=== PATIENT | male | born 1975 | race Caucasian/White ===

== ENCOUNTER 2024-06-27 12:31 | Outpatient (AMB) | payer BC, SELFPAY ==
--- NOTE | 2024-06-27 12:34 | MHC.PC.OV ---
Vital Signs 06/27/24 12:36 Height 5 ft 9 in Weight 166 lb BMI 24.5 BP 132/80 Blood Pressure Location Lt brachial Position Sitting Pulse 67 Pulse Source Pulse Oximeter Pulse Oximetry (%) 97 Oxygen Delivery Method Room Air Intake Visit Reasons: PENS AND PENCILS DIPPER est care Intake Note: Pt is here today for New patient visit PE. Allergies codeine Allergy (Verified 06/27/24 12:38) vomiting nausea Medication List - Last Reconciled 06/27/24 by JOESPH Childers No Known Home Meds Tobacco use date assessed: 06/27/24 Dental Screening Dental Screen Date: 06/27/24 Did you have a dental visit in the last 12 months?: Yes Did you have a dental problem in the last 6 months where you did not have access to dental care?: No Was dental information given to patient?: Patient has dentist HPI PENS AND PENCILS DIPPER est care HPI Details History of Present Illness The patient is a 49-year-old male presenting for a routine physical examination. During the visit, it was noted that the patient has a familial history of Deep Vein Thrombosis (DVT) on his mother?s side, including his mother, uncle, brother, and grandfather. The patient has not experienced any indications or symptoms suggestive of a current or recent DVT episode. He reports that he is physically active, engaging in jogging, tennis, and regular gym workouts. Additionally, he has been experiencing mild depression due to the recent passing of his mother but does not identify significant mental health issues otherwise. He has expressed openness to seeking therapy independently if needed. Health Maintenance - Recommend referral for colonoscopy screening as the patient has never undergone this procedure. - Discussed the importance of continued physical activity for cardiovascular health. Social History - Engages in physical activities such as jogging, tennis, and gym workouts regularly. - Recently experienced mild depression due to the passing of his mother. Review of Systems - Cardiovascular: Denies chest pain. - Respiratory: Denies shortness of breath. - Gastrointestinal: Denies blood in stool, constipation, diarrhea. - Neurological/Psychiatric: Experiences mild depression; denies anxiety. Physical Exam General: Cooperative, healthy appearing, comfortable, no acute distress and well developed Orientation: Patient oriented x3 Limitations: No limitations Head: Normal to inspection Ears: Hearing grossly normal bilaterally Nose: Normal external nose present Face and sinus: Normal facial exam Eyes: Appearance normal, both eyes and all related structures Neck: Normal visual inspection and Yes full ROM Respiratory: Normal respiratory effort and able to speak in complete sentences. Clear to auscultation bilaterally Cardiovascular: Regular rate and rhythm. Normal S1 and S2 GI: Normal to inspection. Soft to palpation and nontender Skin: Freckles throughout body, but no skin lesions or abnormal pigmented lesions noted Neuro: Patient oriented x3 Extremities: Normal to inspection Results Plan - Proceed with a referral to hematology for further investigation into the familial history of DVT. - Recommend a colonoscopy as part of regular health maintenance, given the patient's age and absence of previous screenings. Patient was informed and verbally consented to the use of an ambient scribe for clinic note documentation during this visit. Discussion Notes During the visit, I discussed the significance of monitoring for DVT given the patient's extensive family history. I plan to refer him to hematology to explore potential inherited conditions that may increase his risk. Additionally, I advised on the importance of maintaining his current exercise regimen for health benefits. I recommended undergoing a colonoscopy, which he has not previously had, to ensure comprehensive preventive care. The patient was informed about the potential benefits of seeking therapy to support his mental health, especially in navigating recent bereavement. Patient Instructions - Schedule an appointment with a fare enforcement officer for evaluation related to family history of DVT. - Arrange for a colonoscopy screening. - Continue engaging in regular physical activities such as jogging, tennis, and gym workouts. - Consider therapy for support with mild depression if deemed beneficial. [facility] Surgical History [place] teeth extracted Family History Father Lung cancer Brain cancer Mental health disorder Substance use disorder Mother Hypertension GI cancer Brother Mental health disorder Social History Housing: House Patient Tobacco Use Status: Former Tobacco user e-Cigarette/Vaping Use: Never Used service: No Current occupational status: employed Cognitive needs: No Hearing needs: No Vision needs: Yes Questionnaire PHQ-9 Over the last 2 weeks, how often have you been bothered by any of the following problems? 1. Little interest or pleasure in doing things: not at all 2. Feeling down, depressed, or hopeless: several days 3. Trouble falling or staying asleep, or sleeping too much: not at all 4. Feeling tired or having little energy: not at all 5. Poor appetite or overeating: not at all 6. Feeling bad about yourself - or that you are a failure or have let yourself or your family down: not at all 7. Trouble concentrating on things, such as reading the newspaper or watching television: not at all 8. Moving or speaking so slowly that other people could have noticed. Or the opposite - being so fidgety or restless that you have been moving around a lot more than usual: not at all 9. Thoughts that you would be better off or of hurting yourself in some way: not at all Total score: 1 Depression Screening Interpretation: Negative Depression Screening Done: Yes 54944 - PHQ-9 Billing: Yes Source: Developed by Drs. Troy Sal, Malina Majano, Todd Hooks and colleagues, with an educational iza from [employer]. Thrive Questionnaire Date Thrive assessed: 06/27/24 I am a: Patient What is your living situation today?: I have a steady place to live Within the past 12 months, did the food you bought not last and you didn't have the money to get more?: Never true Within the past 12 months, did you worry whether your food would run out before you got money to buy more?: Never true Do you have trouble paying for medicines?: No Do you have trouble getting transportation to medical appointments?: No Do you have trouble paying your heating and electricity bill?: No Do you have trouble taking care of your child, family member or friend?: No Do you have trouble with day-to-day activities such as bathing, preparing meals, shopping, managing finances, etc.?: No Are you currently unemployed and looking for a job?: No Are you interested in more education?: I choose not to answer this question Please select the resources that you would like help with: None Currently or been in a relationship where the following occur: No concerns reported THRIVE Score: 0 AUDIT C Alcohol Use Questionnaire (AUDIT-C) 1. How often do you have a drink containing alcohol?: 4 or more times a week 2. How many drinks containing alcohol do you have on a typical day when you are drinking?: 1 or 2 3. How often do you have six or more drinks on one occasion?: Never Total Score: 4 Score Reviewed/Action Taken: Yes CATHI-7 AMB Questionnaire CATHI-7 Date CATHI - 7 assessed: 06/27/24 Feeling nervous, anxious, or on edge: 0 = Not at all Not being able to stop or control worryin = Not at all Worrying too much about different things: 0 = Not at all Trouble relaxin = Not at all Being so restless that it is hard to sit still: 0 = Not at all Becoming easily annoyed or irritable: 1 = Several days Feeling afraid as if something awful might happen: 0 = Not at all Total CATHI-7 score (0-4 normal; 5-9 mild; 10-14 moderate; 15-21 severe): 1 Source: Developed by Drs. Troy Sal, Malina Majano, Todd Hooks and colleagues, with an educational iza from [employer]. CATHI-7 Assessment Billing CATHI-7 Assessment Tool: CATHI-7 Assessment 68920 Physical exam (Primary Care) Vital Signs: Last Vital Signs Pulse 67 06/27/24 12:36 BP 132/80 06/27/24 12:36 Pulse Ox 97 06/27/24 12:36 Oxygen Delivery Method Room Air 06/27/24 12:36 BMI result Body Mass Index 24.5 Tobacco/Smoking Status: Tobacco use Status Tobacco use date assessed 06/27/24 06/27/24 12:44 Patient Tobacco Use Status Former Tobacco user 06/27/24 12:44 e-Cigarette/Vaping Use Never Used 06/27/24 12:44 PHQ-9: PHQ-9 Score PHQ-9: Total score 1 06/27/24 12:52 Depression Screening Interpretation: Negative Thrive Assessment: Date of Thrive Assessment Date Thrive assessed 06/27/24 06/27/24 12:44 Currently or been in a relationship where the following occur: No concerns reported Immunizations Fluarix Triv [id number] (PF) 45 mcg (15 mcg x 3)/0.5 mL IM syringe Performing Provider: HARRIS Childers Performing Location: [facility] Administered by: CRISTIAN Scott on 06/27/24 13:05 Dose Route Admin Location Dispensed Lot Number Expiration Date NDC Animal Nutritionist 0.5 mL IM Right Deltoid 0.5 mL [id number] 12/30/24 14082-100-15 [employer] VIS Given Date VIS Provided VIS Publication Date 06/27/24 Single Vaccine 21 Eligibility Eligibility Date Funding Source Not [facility] Eligible 06/27/24 Private Coding Level of Care Code New Pt Prev Care 40-64y(10959) Diagnoses Screening for colon cancer Z12.11 Physical exam Z00.00 Screening for prostate cancer Z12.5 Family history of DVT Z82.49 Additional Codes CATHI-7 Assessment Billing - CATHI-7 Assessment Tool: CATHI-7 Assessment 87414 ([id number]) PHQ-9 - 46198 - PHQ-9 Billing: Yes ([id number]) Assessment & Plan Assessment & Plan (1) Screening for colon cancer: Code(s): Z12.11 - Encounter for screening for malignant neoplasm of colon Category: Medical (2) Physical exam: Code(s): Z00.00 - Encounter for general adult medical examination without abnormal findings Category: Medical (3) Screening for prostate cancer: Code(s): Z12.5 - Encounter for screening for malignant neoplasm of prostate Category: Medical (4) Family history of DVT: Code(s): Z82.49 - Family history of ischemic heart disease and other diseases of the circulatory system Category: Medical Plan . Orders: Orders Comprehensive [place]. Panel Fast Today Z00.00 - Encounter for general adult medical examination without abnormal findings Influenza [id number] Immunization Today Z23 - Encounter for immunization Complete Blood Count Auto Diff Today Z00.00 - Encounter for general adult medical examination without abnormal findings TSH reflex Free T4 Today Z00.00 - Encounter for general adult medical examination without abnormal findings UA CC w/rflx Micro + Cult Today Z00.00 - Encounter for general adult medical examination without abnormal findings Lipid Panel Today Z00.00 - Encounter for general adult medical examination without abnormal findings Prostate Specific Antigen Scr Today Z12.5 - Encounter for screening for malignant neoplasm of prostate Referrals Gastroenterology Referral Z12.11 - Encounter for screening for malignant neoplasm of colon Hematology & Oncology Referral Z82.49 - Family history of ischemic heart disease and other diseases of the circulatory system Medications: New Fluarix Triv [id number] (PF) (flu vacc [id number] 6mos up(PF)) 0.5 mL IM ONCE 0.5 mL 0RF NS Z23 - Encounter for immunization
[2024-06-27 12:36] VITALS: BP 132/80; PULSE 67; O2SAT 97; BMI 24.5
== END 2024-06-27 13:09 | disposition home or self-care (01) ==
PROVIDERS: Visit Provider Nurse Practitioner Family
DX: Z12.11 Encounter for screening for malignant neoplasm of colon (principal); Z00.00 Encounter for general adult medical examination without abnormal findings; Z12.5 Encounter for screening for malignant neoplasm of prostate; Z82.49 Family history of ischemic heart disease and other diseases of the circulatory system; Z23 Encounter for immunization

== ENCOUNTER → 2024-06-27 12:31 | Outpatient (BNVA) | payer BC, SELFPAY | PROVIDERS: Visit Provider Nurse Practitioner Family | DX: Z00.00 Encounter for general adult medical examination without abnormal findings (principal); Z23 Encounter for immunization; Z82.49 Family history of ischemic heart disease and other diseases of the circulatory system | CPT/HCPCS: 90471; 90656; 96127 ==

== ENCOUNTER 2024-06-28 12:04 | Outpatient (REF) | payer BC, SELFPAY ==
[2024-06-28 13:06] LABS: Appearance Urine Clear; Color Urine Yellow; Glucose Urine UA Negative (Negative); Leukocyte Esterase Urine Negative (Negative); MANUAL DIFF FLAG NO; Nitrite Urine Negative (Negative); PH 7.5 (5.0-9.0); Specific Gravity - Urine 1.015 (1.005-1.025); Urine Blood Negative (Negative); Urine Ketones Negative (Negative); Urine Protein Negative (Neg-Trace)
[2024-06-28 13:10] LABS: Basophils Absolute Auto 0.1 X10*3/uL (0.0-0.2); Eosinophils Absolute Auto 0.1 X10*3/uL (0.0-0.4); Eosinophils Percent Auto 1.3 % (0-4); Hematocrit 41.8 % (42.0-52.0); Hemoglobin 14.3 g/dl (14.0-18.0); Imm Gran Abs Auto 0.01 X10*3/uL (0.00-0.03); Imm Gran Pct Auto 0.2 % (0.0-0.4); Lymphocytes Absolute Auto 1.2 X10*3/uL (1.2-4.9); Lymphocytes Percent Auto 19.7 % (20-40); Mean Corpuscular HGB Conc 34.2 g/dl (31.0-36.0); Mean Corpuscular Hemoglobin 33.2 pg (27.0-33.0); Mean Platelet Volume 10.5 fL (9.4-12.4); Monocytes Absolute Auto 0.6 X10*3/uL (0.1-1.2); Monocytes Percent Auto 10.6 % (2-11); Neutrophils Percent Auto 67.2 % (45-73); Platelet Count 261 X10*3/uL (160-400); Red Blood Count 4.31 X10*6/uL (4.60-5.80); Red Cell Distribution Width 12.1 % (11.0-16.0); White Blood Count 5.9 X10*3/uL (4.8-10.8)
[2024-06-28 14:00] LABS: Alanine Aminotransferase 16 U/L (0-40); Albumin Level 4.3 g/dL (3.5-5.0); Alkaline Phosphatase 41 U/L (39-117); Anion Gap 11 (12-20); Aspartate Amino Transferase 29 U/L (5-37); Bilirubin Total 1.4 mg/dL (0.0-1.0); Blood Urea Nitrogen 11 mg/dL (9-16); Calcium 9.4 mg/dL (8.4-10.2); Carbon Dioxide 27 mmol/L (22-29); Chloride 103 mmol/L (96-108); Cholesterol 200 mg/dL (<200); Estimated Glomerular Filt Rate > 60; Glucose Fasting 86 mg/dL (60-99); HDL Cholesterol 85 mg/dL (>40); LDL Cholesterol Calculated 106 mg/dL (<100); Sodium 137 mmol/L (135-145); Total Protein 6.9 g/dL (6.5-8.0); Triglycerides 45 mg/dL (<150)
[2024-06-28 14:02] LABS: Prostate Specific Antigen Scr 0.41 ng/mL (<0.05-4.0)
[2024-06-28 14:03] LABS: TSH reflex Free T4 0.98 uIU/mL (0.32-4.0)
== END 2024-06-28 12:05 | disposition home or self-care (01) ==
LOC: HO.HMGCLDS 12:04
PROVIDERS: PCP Nurse Practitioner Family; Visit Provider Nurse Practitioner Family
DX: Z00.00 Encounter for general adult medical examination without abnormal findings (principal); Z12.5 Encounter for screening for malignant neoplasm of prostate
CPT/HCPCS: 36415; 80053; 80061; 81003; 84153; 84443; 85025

== ENCOUNTER → 2024-07-10 13:00 | Outpatient (BNV) | payer BC, SELFPAY | PROVIDERS: PCP Nurse Practitioner Family; Referring Provider Nurse Practitioner Family; Visit Provider Internal Medicine | DX: Z83.2 Family history of diseases of the blood and blood-forming organs and certain disorders involving the immune mechanism (principal) | CPT/HCPCS: 99203 ==

== ENCOUNTER 2024-12-05 08:02 | Outpatient (REF) | payer BC, SELFPAY ==
[2024-12-05 09:18] LABS: MANUAL DIFF FLAG NO
[2024-12-05 10:04] LABS: Basophils Absolute Auto 0.1 X10*3/uL (0.0-0.2); Basophils Percent Auto 1.2 % (0-2); Eosinophils Absolute Auto 0.1 X10*3/uL (0.0-0.4); Eosinophils Percent Auto 1.8 % (0-4); Hematocrit 42.5 % (42.0-52.0); Hemoglobin 14.3 g/dl (14.0-18.0); Imm Gran Abs Auto 0.01 X10*3/uL (0.00-0.03); Imm Gran Pct Auto 0.2 % (0.0-0.4); Lymphocytes Absolute Auto 1.8 X10*3/uL (1.2-4.9); Lymphocytes Percent Auto 27.3 % (20-40); Mean Corpuscular HGB Conc 33.6 g/dl (31.0-36.0); Mean Corpuscular Hemoglobin 32.2 pg (27.0-33.0); Mean Corpuscular Volume 95.7 fL (80.0-98.0); Mean Platelet Volume 10.1 fL (9.4-12.4); Monocytes Absolute Auto 0.6 X10*3/uL (0.1-1.2); Monocytes Percent Auto 9.5 % (2-11); Platelet Count 298 X10*3/uL (160-400); Red Blood Count 4.44 X10*6/uL (4.60-5.80); Red Cell Distribution Width 12.2 % (11.0-16.0); White Blood Count 6.6 X10*3/uL (4.8-10.8)
[2024-12-05 11:10] LABS: Iron 108 mcg/dL (45-160); Percent Iron Saturation 36 % (15-50); TSH reflex Free T4 1.12 uIU/mL (0.32-4.0); Total Iron Binding Capacity 298 mcg/dL (228-428); Unsaturated Iron Binding 190 ug/dL
== END 2024-12-05 08:03 | disposition home or self-care (01) ==
LOC: HO.LAB 08:02
PROVIDERS: PCP Nurse Practitioner Family; Visit Provider Nurse Practitioner Family
DX: Z12.11 Encounter for screening for malignant neoplasm of colon (principal); R19.5 Other fecal abnormalities
CPT/HCPCS: 36415; 83540; 84443; 85025

== ENCOUNTER 2024-12-05 08:02 | Outpatient (AMB) | payer BC, SELFPAY ==
--- NOTE | 2024-12-05 08:07 | MHC.OFFVIS ---
Vital Signs 12/05/24 08:08 Height 5 ft 9 in Weight 160 lb BMI 23.6 BP 123/68 Blood Pressure Location Lt brachial Position Sitting Pulse 64 Oxygen Delivery Method Room Air Intake Visit Reasons: colo screening Intake Note: Patient new consult for 1st pre Colonosocopy screening. Patient denies any other GI issues. Ichthyologist Required: No Accompanied by: Self / Same As Patient Allergies codeine Allergy (Verified 12/05/24 08:07) vomiting nausea HPI HPI colo screening: Details: Patient is a 49-year-old male. Referred by PCP for pre colonoscopy screening. Reports occasional diarrhea, occurring about once every two weeks, mostly after ingesting dairy products (e.g., ice cream), with episodes typically isolated to the day of dairy consumption. Bowel movements otherwise daily with no straining or constipation. No impact on quality of life; no interference with daily activities. No known additional GI or extraintestinal symptoms noted. Reports seasonal allergies with morning symptoms, improving throughout the day. Patient denies: fever/chills, n/v, appetite changes, pyrosis, regurgitation,dysphasia, unintentional wt loss, ab pain, or melena/hematochezia. Social History - Diet: Regular diet; consumes dairy products, noted as diarrhea trigger. No formal restrictions. - Alcohol: Beer daily (approx. 1 beer per night; occasionally 2 on weekends). - Tobacco: Former user, ceased c. 2004 (smoking during college/20s); brief vaping history. - Recreational Drug Use: Remote marijuana use, not in several years. - physically active with regular running/cardiovascular activity. - family hx as below -denies personal hx of CA -denies significant cardiopulmonary history -tolerated anesthesia in the past without difficulty. [facility] Medical History (Updated 12/05/24 @ 08:49 by Giulia Ortega CNP) Loose stools Surgical History [place] teeth extracted Family History Father Lung cancer Brain cancer Mental health disorder Substance use disorder Mother Hypertension GI cancer Brother Mental health disorder Social History Household Members: Spouse Housing: House Patient Tobacco Use Status: Former Tobacco user e-Cigarette/Vaping Use: Never Used service: No Current occupational status: employed Cognitive needs: No Hearing needs: No Vision needs: Yes Review of Systems Const Reports as per [facility] ENT Reports as per [facility] Card Reports as per [facility] Resp Reports as per [facility] GI Reports as per [facility] Reports as per [facility] Physical Exam Vital Signs: Last Vital Signs Pulse 64 12/05/24 08:08 BP 123/68 12/05/24 08:08 Oxygen Delivery Method Room Air 12/05/24 08:08 BMI result Body Mass Index 23.6 Const General: healthy appearing, no acute distress and well developed Nutritional Appearance: well nourished Orientation/consciousness: patient oriented x3 HEENT Head: Yes normal to inspection, Yes normocephalic and Yes atraumatic Face and sinus: Yes normal facial exam Eyes General: appearance normal, both eyes and all related structures Neck Neck: Yes normal visual inspection Resp Effort & Inspection: normal respiratory effort, able to speak in complete sentences, no tracheal deviation and symmetric chest movement Auscultation: clear to auscultation bilaterally Cardio Jugular venous distension: no JVD Rate: regular rate Rhythm: regular rhythm Heart sounds: S1 normal heart sound present, S2 normal heart sound present, no gallops and no murmurs GI Inspection: Yes normal to inspection and No distended Palpation (GI): Soft to palpation, not firm, nontender and No hepatosplenomegaly present Auscultation: normal bowel sounds Neuro General: patient oriented x3 Gait exam (Neuro): Normal gait present Psych Appearance: grossly normal Mental Status: mental status grossly normal Speech and movement: Normal speech and movement present Affect: normal affect Attitude: cooperative Thought process: Normal thought process present Thought content: Normal thought content present Insight: Good insight present (Psych) Judgement: Good judgement present (Psych) Assessment & Plan Assessment & Plan (1) Screening for colon cancer: Code(s): Z12.11 - Encounter for screening for malignant neoplasm of colon Category: Medical Plan: Due for index screening colonoscopy Additional Tests: - CBC to re-eval for mild anemia noted Jun 2024 Diagnostic Tests: Prescriptions for laxative tablets and Miralax sent to pharmacy; instructions for Gatorade purchase and clear liquid diet given. Medications: - understands to hold NSAIDs 7 days prior to procedure. - Use Tylenol if needed for pain. Patient educated on procedure preparation, including avoiding certain foods and ensuring clear liquid intake. Advised on necessity for ride post-procedure due to sedation. (2) Loose stools: Code(s): R19.5 - Other fecal abnormalities Category: Medical Plan: Temporal relationship with dairy, no other sx or life impact. Additional Tests: TSH + as above Lifestyle Modifications: Reduce/avoid dairy, consider food/sx journal for trigger identification. If continued dairy consumption, consider lactase supplements PRN. If diarrhea occurs apart from clear triggers or with concerning features (pain, blood, nocturnal sx, weight loss), return for further evaluation. Plan Shared decision-making to follow up as needed after colonoscopy Time: I spent a total of 25 minutes on the date of encounter which includes: Preparing to see the patient (reviewed previous documentation, test results and medical history) Performing a medically appropriate exam and/or evaluation Ordering medications, tests, and procedures Documenting clinical information in the health record Orders: Orders IRON PROFILE Today Z12.11 - Encounter for screening for malignant neoplasm of colon TSH reflex Free T4 Today Z12.11 - Encounter for screening for malignant neoplasm of colon Complete Blood Count Auto Diff Today Z12.11 - Encounter for screening for malignant neoplasm of colon Medications: New bisacodyl Take four tablets once for 1 day per colonoscopy instructions 5 mg PO ONCE 4 tabs 0RF 1 day polyethylene glycol 3350 (Miralax) per colonoscopy prep instructions 238 grams PO ONCE 238 grams 0RF Coding Level of Care Code New Pt New Pt Level 3 (92010) Patient Type New Diagnoses Screening for colon cancer Z12.11 Loose stools R19.5
[2024-12-05 08:08] VITALS: BP 123/68; PULSE 64; BMI 23.6
== END 2024-12-05 08:57 | disposition home or self-care (01) ==
LOC: HO.HGI 08:02
PROVIDERS: PCP Nurse Practitioner Family; Visit Provider Nurse Practitioner Family
DX: Z01.818 Encounter for other preprocedural examination (principal); Z12.11 Encounter for screening for malignant neoplasm of colon; R19.5 Other fecal abnormalities
CPT/HCPCS: S0285